=== PATIENT | male | born 1955 | race Caucasian/White ===

== ENCOUNTER 2020-06-21 19:18 | Observation (INO) | payer MEDICAID, SELFPAY ==
[2020-06-21] VITALS (10 sets, daily range): BP systolic 125–157; BP diastolic 54–77; PULSE 52–74; RESP 16–22; TEMP 36.4–36.9; O2SAT 94–98; BMI 42.3
--- NOTE | 2020-06-21 19:20 | W.ED.ABDPA2 ---
HPI - Abdominal Pain General: Chief Complaint: Abdominal Pain Stated Complaint: flank pain Time Seen by Provider: 06/21/20 19:18 Source: patient Mode of arrival: ambulatory Limitations: no limitations History of Present Illness: HPI narrative: Nazario is a nice 64-year-old male comes in complaining of left upper quadrant abdominal pain. He states at times the pain will go across his upper abdomen as well. There is associated nausea and has vomited once but did not get any relief with this. He states when he lays in certain positions the pain will go away briefly but then returns. He denies any fevers or chills. He has had shortness of breath he thinks primarily from the pain taking his breath away. He is not had any cough, loss of sense of taste or loss of sense of smell. He does feel somewhat constipated like he needs to go but he denies any recent blood in his stools or black tarry stools. Patient denies any chest pain. Patient states the pain started last night and is gotten progressively worse. It was gradual in onset from the beginning and is just continued to worsen. Associated Symptoms: Reports nausea and vomiting; Denies chills, coffee ground emesis, constipation, GI cramping, diarrhea, dysuria, fever(s), heartburn, hematochezia, hematuria, hematemesis, melena and syncope Review of Systems Const: Denies: fever(s), chills, body aches, fatigue, malaise or diaphoresis Eyes: Denies: change in vision, blurry vision, photophobia, eye discomfort, eye discharge or eye redness ENMT: Denies: throat pain, odynophagia, hoarseness, swelling of lips/tongue, ear or mastoid pain, ear discharge, change in hearing or nasal discharge Card: Denies: chest pain, palpitations, irregular heart rhythm, edema, lightheadedness, syncope, pre-syncope, dyspnea on exertion or orthopnea Resp: Reports: dyspnea; Denies: productive cough, non-productive cough, wheezing, hemoptysis or chest congestion GI: Reports: abdominal pain, nausea and vomiting; Denies: hematemesis, coffee ground emesis, heartburn, diarrhea, constipation, GI cramping, hematochezia or melena : Denies: flank pain, dysuria, urinary frequency, urinary urgency or hematuria Musc: Denies: neck pain, back pain, extremity pain, extremity swelling, joint pain, joint swelling, joint redness, joint warmth or joint stiffness Skin/Breast: Denies: rash, pruritus, erythema or skin tenderness Neuro: Denies: headache(s), numbness in extremities, weakness in extremities, sensory changes, lack of coordination, difficulty walking, dizziness, vertigo, confusion, Slurred speech present or seizure-like activity Ayaz/Lymph: Denies: easy bruising, easy bleeding, petechiae, purpura or enlarged lymph nodes All/Imm: Denies: urticaria, throat swelling, tongue swelling, facial swelling or acute wheezing PFSH ED PFSH: Medical History 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 CAD (coronary artery disease) Diastolic heart failure HTN (hypertension) Hyperlipidemia Surgical History S/P CABG (coronary artery bypass graft) Family History Mother Diabetes Heart disease Father Diabetes Heart disease Social History Smoking and tobacco status: former smoker Physical Exam Const: COMMON NORMALS: no acute distress, patient oriented x3, no limitations, healthy appearing and well nourished GENERAL APPEARANCE: cooperative, well kempt and well developed HENMT: COMMON NORMALS: normocephalic, atraumatic, external ears normal, EAC's normal and Normal external nose present HEAD & SCALP: normal to inspection, normocephalic and atraumatic FACE & SINUS: normal facial exam and face symmetric NOSE: Normal external nose present and Normal nares present EXTERNAL EAR: Yes external ears normal EXTERNAL AUDITORY CANAL: EAC's normal MOUTH: Normal oral and palatal mucosa present, lip normal and tongue normal Eye: COMMON NORMALS: Equal, round and reactive pupils present and conjunctivae normal GENERAL EYE: appearance normal, both eyes and all related structures ALIGNMENT: Yes alignment normal PERIORBITAL: periorbital findings normal EYELID: eyelids normal CONJUNCTIVA: Yes conjunctivae normal SCLERA: sclerae normal PUPIL: Yes Equal, round and reactive pupils present Neck/C-Spine: COMMON NORMALS: full ROM, no lymphadenopathy, supple, no meningeal signs and no JVD GENERAL: Yes normal visual inspection and Yes trachea midline Chest: COMMONS NORMALS: normal inspection of the chest and normal palpation of entire chest wall Resp: COMMON NORMALS: normal respiratory effort, No retractions, No use of accessory muscles and clear to auscultation bilaterally EFFORT & INSPECTION: Yes able to speak in complete sentences and Yes symmetric chest movement AUSCULTATION: clear to auscultation bilaterally, no crackles, no rales, no rhonchi and no wheezes Cardio: COMMON NORMALS: no JVD, regular rate, regular rhythm, S1 normal heart sound present and S2 normal heart sound present RATE: regular rate RHYTHM: regular rhythm HEART SOUNDS: S1 normal heart sound present, S2 normal heart sound present, no click, no gallops, no murmurs, no rubs and abnormal split S2 GI: COMMON NORMALS: Soft to palpation and No hepatosplenomegaly present PALPATION: Yes Soft to palpation, Yes Tenderness to palpation present (GI) Details: LUQ, No Guarding due to palpation present (GI), No Rigid due to palpation, Yes No hepatosplenomegaly present, No Hernia present, No Palpable mass present and No Pulsatile mass present : COMMON NORMALS: Yes no CVA tenderness BLADDER/KIDNEY EXAM: Yes no CVA tenderness Back/Pelvis: COMMON NORMALS: no CVA tenderness, thoracic and lumbar spine normal to inspection, no thoracic nor lumbar tenderness and thoraco-lumbar ROM normal Extremity: COMMON NORMALS: normal to inspection, full ROM, capillary refill normal, no joint enlargement, no clubbing, cyanosis or edema and no calf tenderness Neuro: COMMON NORMALS: patient oriented x3, CN's II-XII intact bilaterally, moves all extremities, no focal motor deficits and no sensory deficits noted MENINGEAL SIGNS: Yes no meningeal signs SPEECH: speech normal Psych: COMMON NORMALS: mental status grossly normal, Normal thought process present, cooperative, normal affect, speech normal and activity/motor behavior normal APPEARANCE: Yes well kempt SPEECH: Yes normal speech THOUGHT PROCESS: Normal thought process present Skin: COMMON NORMALS: no rashes or lesions noted, turgor normal, no jaundice, no petechiae and no mottling GENERAL SKIN EXAM: no rashes or lesions noted and turgor normal Course Vital Signs: Vital signs: Vital Signs Temperature 97.5 F L 06/21/20 19:23 Pulse Rate 56 L 06/21/20 20:34 Respiratory Rate 18 06/21/20 21:29 Blood Pressure 157/69 06/21/20 20:34 Pulse Oximetry 95 06/21/20 20:34 MDM - Abdominal Pain Lab Data: Attestation: I reviewed the patient's lab results. Labs: Lab Results 06/21/20 06/21/20 06/21/20 Range/Units 19:21 19:21 19:21 WBC 9.4 (4.0-10.0) 10^3/ uL RBC 4.03 L (4.1-5.3) 10^6/u L Hgb 13.9 (11.7-16.6) g/dL Hct 43.1 (42.0-52.0) % MCV 106.9 H (80-94) fL MCH 34.5 H (28.0-34.0) pg MCHC 32.3 (30.0-36.0) g/dL RDW 13.6 (12.1-15.1) % Plt Count 216 (130-400) 10^3/c mm MPV 10.0 (7.4-10.4) fL Neut % (Auto) 65.4 % Lymph % (Auto) 24.3 % Mcpherson % (Auto) 8.2 % Eos % (Auto) 1.2 % Baso % (Auto) 0.4 % Neut # (Auto) 6.18 (1.8-7.7) 10^3/u L Lymph # (Auto) 2.3 (0.8-4.8) 10^3/u L Mcpherson # (Auto) 0.8 (0.2-0.9) 10^3/u L Eos # (Auto) 0.1 (0.0-0.8) 10^3/u L Baso # (Auto) 0.0 (0.0-0.1) 10^3/u L Nucleated RBC % (a uto) 0 % Nucleated RBCs # 0.0 /100WBC Sodium 134 L (136-145) mmol/L Potassium 3.9 (3.5-5.1) mmol/L Chloride 101 (98-107) mmol/L Carbon Dioxide 19 L (22-29) mmol/L Anion Gap 17.9 (5-19) BUN 13 (8-23) mg/dL Creatinine 1.2 (0.7-1.2) mg/dL GFR Calculation 61.3 L (90-130) mL/min Glucose 145 H (65-115) mg/dL Calculated Osmolal ity 277 L (285-295) mOsm/k g Lactic Acid (0.5-2.2) mmol/L Calcium 9.2 (8.5-10.5) mg/dL Total Bilirubin 0.4 (0.15-1.2) mg/dL AST 38 (0-40) U/L ALT 34 (0-41) U/L Alkaline Phosphata se 59 (40-130) IU/L Troponin T Baselin e 20 H (0-15) ng/L Total Protein 8.0 (6.6-8.7) g/dL Albumin 4.3 (3.5-5.2) g/dL Globulin 3.7 (1.3-4.6) g/dL Lipase 71 H (13-60) U/L Urine Color (Yellow) Urine Appearance (CLEAR) Urine pH (5-7) Ur Specific Gravit y (1.005-1.030) Urine Protein (Negative) Urine Glucose (UA) (Normal) Urine Ketones (Negative) Urine Blood (Negative) Urine Nitrate (Negative) Urine Bilirubin (NEGATIVE) Urine Urobilinogen (Negative) mg/dL Ur Leukocyte Geovanna ase (Negative) Urine RBC (0-2) /hpf Urine WBC (0-5) /hpf Ur Squamous Epith Cells (0-5) Amorphous Sediment Urine Bacteria (NONE) 06/21/20 06/21/20 Range/Units 19:35 19:50 WBC (4.0-10.0) 10^3/ uL RBC (4.1-5.3) 10^6/u L Hgb (11.7-16.6) g/dL Hct (42.0-52.0) % MCV (80-94) fL MCH (28.0-34.0) pg MCHC (30.0-36.0) g/dL RDW (12.1-15.1) % Plt Count (130-400) 10^3/c mm MPV (7.4-10.4) fL Neut % (Auto) % Lymph % (Auto) % Mcpherson % (Auto) % Eos % (Auto) % Baso % (Auto) % Neut # (Auto) (1.8-7.7) 10^3/u L Lymph # (Auto) (0.8-4.8) 10^3/u L Mcpherson # (Auto) (0.2-0.9) 10^3/u L Eos # (Auto) (0.0-0.8) 10^3/u L Baso # (Auto) (0.0-0.1) 10^3/u L Nucleated RBC % (a uto) % Nucleated RBCs # /100WBC Sodium (136-145) mmol/L Potassium (3.5-5.1) mmol/L Chloride (98-107) mmol/L Carbon Dioxide (22-29) mmol/L Anion Gap (5-19) BUN (8-23) mg/dL Creatinine (0.7-1.2) mg/dL GFR Calculation (90-130) mL/min Glucose (65-115) mg/dL Calculated Osmolal ity (285-295) mOsm/k g Lactic Acid 2.3 H (0.5-2.2) mmol/L Calcium (8.5-10.5) mg/dL Total Bilirubin (0.15-1.2) mg/dL AST (0-40) U/L ALT (0-41) U/L Alkaline Phosphata se (40-130) IU/L Troponin T Baselin e (0-15) ng/L Total Protein (6.6-8.7) g/dL Albumin (3.5-5.2) g/dL Globulin (1.3-4.6) g/dL Lipase (13-60) U/L Urine Color Yellow (Yellow) Urine Appearance Clear (CLEAR) Urine pH 6 (5-7) Ur Specific Gravit y 1.015 (1.005-1.030) Urine Protein Neg (Negative) Urine Glucose (UA) Norm (Normal) Urine Ketones Negative (Negative) Urine Blood Neg (Negative) Urine Nitrate Negative (Negative) Urine Bilirubin Neg (NEGATIVE) Urine Urobilinogen Norm (Negative) mg/dL Ur Leukocyte Geovanna ase Negative (Negative) Urine RBC None (0-2) /hpf Urine WBC None (0-5) /hpf Ur Squamous Epith Cells 5-10 H (0-5) Amorphous Sediment Not Reportable Urine Bacteria Trace (NONE) Imaging Data ^: CT Abd/Pel: Radiologist's impression: [address] [address] [address] Scan Report Signed Patient: Laura Iqbal Unit #: [id number] : 01/23/1991 Age/Sex: 29 / F ADM Date: 06/21/20 Loc: ER Room/Bed: Attending Dr: Ordering Provider/Ordering MD: Jill Cerrato DO Date of Service: 06/21/20 Procedure(s): CT angio chest PE protcl [id number] Accession Number(s): [id number] Report Number: [id number] PROCEDURE INFORMATION: Exam: CT Angiography Chest With Contrast Exam date and time: 06/21/2020 8:29 PM Age: 29 years old Clinical indication: Chest pain; Additional info: Chest pain, positive d-dimer TECHNIQUE: Imaging protocol: Computed tomographic angiography of the chest with intravenous contrast. 3D rendering (Not supervised by radiologist): MIP and/or 3D reconstructed images were created by the technologist. Radiation optimization: All CT scans at this facility use at least one of these dose optimization techniques: automated exposure control; mA and/or kV adjustment per patient size (includes targeted exams where dose is matched to clinical indication); or iterative reconstruction. Contrast material: VISI 320; Contrast volume: 67 ml; Contrast route: INTRAVENOUS (IV); COMPARISON: CR XR chest 2V* [id number] 06/21/2020 6:03 PM RADIATION DOSE METRICS: Total DLP (mGy-cm): 588.13 FINDINGS: Pulmonary arteries: Normal. No pulmonary emboli. Aorta: Unremarkable. No aortic aneurysm. No aortic dissection. Lungs: Unremarkable. No consolidation. No masses. Pleural space: Unremarkable. No pneumothorax. No pleural effusion. Heart: Unremarkable. No cardiomegaly. No pericardial effusion. Lymph nodes: Unremarkable. No enlarged lymph nodes. Bones/joints: Unremarkable. No acute fracture. Soft tissues: Unremarkable. CT/CT angio chest PE protcl [id number] IMPRESSION: Negative for pulmonary embolus or airspace infiltrate. Radiation Dose CTDIVOL = (mGy): DLP = 588.13 (mGy-cm) Dictated By: Yoshi Christian MD Signed By: Yoshi Christian MD Signed Date/Time: 06/21/202114 DD/ 13 US: My impression: Ultrasound abdomen complete, tech interpretation -increased gas within the bowel itself. Gallbladder normal except for gallstone present. No gallbladder wall thickening or pericholecystic fluid. All other findings unremarkable. Please see formal report. EKG Data ^: EKG 1: Attestation: I personally reviewed and interpreted this EKG as follows: EKG interpretation date: 06/21/20 EKG interpretation time: 19:34 Interpretation: Normal sinus rhythm at 63 beats a minute, nonspecific ST and T wave changes. No blocks, normal intervals. Similar to previous. EKG 2: Attestation: I personally reviewed and interpreted this EKG as follows: EKG interpretation date: 06/21/20 EKG interpretation time: 21:36 Interpretation: Sinus bradycardia 51 beats a minute, no acute ST or T wave changes. Prolonged QT. Discharge Plan Discharge Prescriptions: No Action metoprolol tartrate 50 mg tablet 50 mg PO BID RF: 0 lisinopril 5 mg tablet 5 mg PO DAILY RF: 0 aspirin [Adult Low Dose Aspirin] 81 mg tablet,delayed release (DR/EC) 81 mg PO DAILY RF: 0 Novolog U-100 Insulin aspart 100 unit/mL solution 5 unit SUBCUT DIRECTED RF: 0 Lantus U-100 Insulin 100 unit/mL solution 30 unit SUBCUT DIRECTED RF: 0 ranolazine [Ranexa] 500 mg tablet extended release 12 hr 1,000 mg PO BID RF: 0 isosorbide mononitrate 30 mg tablet extended release 24 hr 120 mg PO DIRECTED Qty: 120 RF: 5 bumetanide 1 mg tablet 1 mg PO BID Qty: 90 RF: 3 simvastatin 40 mg tablet 40 mg PO .HS Qty: 90 RF: 3 Coding Level of Care Code ED 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
--- NOTE | 2020-06-21 19:27 | CTR_ITS ---
PROCEDURE INFORMATION: Exam: CT Abdomen And Pelvis With Contrast Exam date and time: 06/21/2020 8:00 PM Age: 64 years old Clinical indication: Nausea and other: Belching; Abdominal pain; Other: Epigastric; Prior surgery; Surgery type: Hernia, hip, cabg TECHNIQUE: Imaging protocol: Computed tomography of the abdomen and pelvis with intravenous contrast. Radiation optimization: All CT scans at this facility use at least one of these dose optimization techniques: automated exposure control; mA and/or kV adjustment per patient size (includes targeted exams where dose is matched to clinical indication); or iterative reconstruction. Contrast material: OMNI 300; Contrast volume: 95 ml; Contrast route: INTRAVENOUS (IV); COMPARISON: US Abdomen* [id number] 10/09/2019 8:08 AM RADIATION DOSE METRICS: Total DLP (mGy-cm): 2005.72 FINDINGS: There is atelectasis within the lung bases. There are degenerative changes of the spine. There are degenerative changes of the sacroiliac joints. There are postop changes of the right hemipelvis. There is fatty infiltration of the liver. There is no liver mass. There is no intrahepatic biliary dilatation. A gallstone is seen within the gallbladder. The pancreas is unremarkable. The spleen is unremarkable. There is no adrenal mass. There is no hydronephrosis. There are no renal calculi. There is no perinephric stranding. There is no renal mass. The aorta is normal in caliber. The IVC is normal in caliber. There is no retroperitoneal adenopathy. There is no mesenteric adenopathy. An IVC filter is noted. There is a small hiatal hernia. There is no gastric wall thickening. The small bowel loops in the upper abdomen are nondistended with no bowel wall thickening. The colonic structures within the upper abdomen are normal in caliber with no bowel wall thickening. There is a fat containing umbilical hernia. A normal appendix is seen in the right lower abdomen. Within the pelvis: The bladder is unremarkable. The prostate gland and seminal vesicles are normal. There is no free fluid within the pelvis. There is no inguinal adenopathy. There is a fat containing right inguinal hernia. There is no pelvic adenopathy. The bowel loops within the pelvis are unremarkable. CT/CT abdomen pelvis w con* [id number] IMPRESSION: 1. Fatty infiltration of the liver. 2. Gallstone within the gallbladder. 3. No evidence for bowel obstruction or bowel wall thickening. Radiation Dose CTDIVOL = (mGy): DLP = 2006.72 (mGy-cm)
--- NOTE | 2020-06-21 19:27 | ECG_ITS ---
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 Measurements Intervals [place] Rate: 63 P: 24 CT: 161 QRS: -5 QRSD: 92 T: 91 QT: 402 QTc: 414 Interpretive Statements SINUS RHYTHM NONSPECIFIC ST & T-WAVE ABNORMALITY Compared to ECG 10/09/2019 12:19:32 Sinus bradycardia no longer present T-wave abnormality still present Electronically Signed On 06-23-2020 12:47:48 CDT by Kushal Blankenship M.D. [id number] f
[2020-06-21 19:30] LABS: Basophils % 0.4 %; Eosinophils # 0.1 10^3/uL (0.0-0.8); Eosinophils % 1.2 %; Hematocrit 43.1 % (42.0-52.0); Hemoglobin 13.9 g/dL (11.7-16.6); Lymphocytes # 2.3 10^3/uL (0.8-4.8); Lymphocytes % 24.3 %; Mean Corpuscular HGB Conc 32.3 g/dL (30.0-36.0); Mean Corpuscular Hemoglobin 34.5 pg (28.0-34.0); Mean Corpuscular Volume 106.9 fL (80-94); Monocytes # 0.8 10^3/uL (0.2-0.9); Monocytes % 8.2 %; Neutrophils # 6.18 10^3/uL (1.8-7.7); Neutrophils % 65.4 %; Nucleated Red Blood Cells % 0 %; Platelet Count 216 10^3/cmm (130-400); Red Blood Count 4.03 10^6/uL (4.1-5.3); Red Cell Distribution Width 13.6 % (12.1-15.1); White Blood Count 9.4 10^3/uL (4.0-10.0)
[2020-06-21] MEDS: ondansetron 2 mg/ML SDV 2 mL 4 MG IVP (19:37)
[2020-06-21] MEDS: morphine 4 mg/mL SDV 1 mL IVP (19:38)
[2020-06-21] MEDS: sodium chloride 0.9% 1,000 ML 100 ML IV (19:42)
[2020-06-21 19:46] LABS: Alanine Aminotransferase 34 U/L (0-41); Albumin Level 4.3 g/dL (3.5-5.2); Alkaline Phosphatase 59 IU/L (40-130); Aspartate Amino Transferase 38 U/L (0-40); Blood Urea Nitrogen 13 mg/dL (8-23); Calcium 9.2 mg/dL (8.5-10.5); Carbon Dioxide 19 mmol/L (22-29); Chloride 101 mmol/L (98-107); Globulin 3.7 g/dL (1.3-4.6); Glomerular Filtration Rate 61.3 mL/min (90-130); Glucose 145 mg/dL (65-115); Lipase 71 U/L (13-60); Osmolality Calculated 277 mOsm/kg (285-295); Sodium 134 mmol/L (136-145); Total Bilirubin 0.4 mg/dL (0.15-1.2)
[2020-06-21 19:48] LABS: Anion Gap 17.9 (5-19); Potassium 3.9 mmol/L (3.5-5.1)
[2020-06-21 19:57] LABS: Lactic Sepsis W/Reflex 2.3 mmol/L (0.5-2.2)
[2020-06-21 19:58] LABS: Troponin(5th) Baseline 20 ng/L (0-15)
--- NOTE | 2020-06-21 19:58 | PC.NURSE ---
EKG done at 1930 and shown to ER doctor
[2020-06-21] MEDS: iohexol 300 mg/mL 100 mL Btl IV (20:14)
[2020-06-21 20:37] LABS: Bilirubin Urine Neg (NEGATIVE); Blood Urine Neg (Negative); Glucose Urine UA Norm (Normal); Ketones Urine Negative (Negative); Leukocyte Esterase Urine Negative (Negative); Nitrate Urine Negative (Negative); Protein Urine Neg (Negative); Specific Gravity, Urine 1.015 (1.005-1.030); Urine Appearance Clear (CLEAR); Urine Color Yellow (Yellow); Urobilinogen Urine Norm (Negative); pH Urine 6 (5-7)
[2020-06-21 20:38] LABS: Add Urine Culture? No; Bacteria Urine TRACE
[2020-06-21] MEDS: HYDROmorphone 1 mg/mL INJ 1 mL IVP ×2 (20:47→22:14)
[2020-06-21] MEDS: sodium chloride 0.9% 1,000 ML 999 ML IV ×2 (21:19→23:18)
[2020-06-21 21:24] LABS: Reflex Lactate Order REFLEX LACTIC ORDERD
--- NOTE | 2020-06-21 21:27 | ECG_ITS ---
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 Measurements Intervals [place] Rate: 51 P: 23 [place]: 175 QRS: 0 QRSD: 98 T: 57 QT: 486 QTc: 449 Interpretive Statements SINUS BRADYCARDIA NONSPECIFIC T-WAVE ABNORMALITY PROLONGED QT INTERVAL Compared to ECG 10/09/2019 12:19:32 Prolonged QT interval now present T-wave abnormality still present Electronically Signed On 06-21-2020 23:36:59 CDT by Charisma Kelly M.D. [id number]
[2020-06-21] MEDS: HYDROmorphone 1 mg/mL INJ 1 mL 0.5 MG IVP (21:29)
--- NOTE | 2020-06-21 21:37 | PC.NURSE ---
EKG done at 2135 and shown to ER doctor
[2020-06-21 21:57] LABS: Troponin 5 2HR 22.28 ng/L (0-15); Troponin 5 2HR Delta 2.28 ABS# (0-10)
[2020-06-21 22:02] LABS: Lactic Acid level (Lactate) 1.5 mmol/L (0.5-2.2)
--- NOTE | 2020-06-21 22:21 | P.HP_ITS ---
Providers/Chief Complaint Primary Care Provider: Raymundo Clayton MD Chief Complaint: flank pain History of Present Illness Nazario Wood is a 64 year old male who carries history of established coronary disease, patent grafts with multivessel disease, type 2 diabetes, diastolic congestive heart failure, hypertension, came in today for worsening left upper quadrant pain. He underwent stress test 10/20, which showed mild to moderate ischemia in anterolateral territory consistent LAD distribution, his antianginal medications were uptitrated, his anatomy shows 80% left main chronically occluded mid LAD, chronically occluded circumflex along with chronically occluded mid RCA and patent EDWARDS to LAD with SVG to obtuse marginal and RCA as per angiogram 2017. Patient is stating that he started experiencing left upper quadrant pain which he is describing as burning sensation. His symptoms started yesterday after dinner, in the morning he had 2 slices of bread with butter, when he returned from his work he started experiencing worsening of left upper quadrant pain, he experienced multiple episodes of dry heaves, with one episode of small quantity vomiting, he did not experience any fever, dysuria, diarrhea or constipation. He has been experiencing belching/burping a lot. Patient is not endorsing worsening abdominal pain with intake of fatty food. He does not take NSAIDs on regular basis, no previous history of gastric ulcer. He is stating that he would not call it chest pain, this pain is different when he had CT in the past, he is denying substernal chest pain, orthopnea, PND, but endorsing pleuritic pain on his left side which gets worse on deep breathing. 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 His left upper quadrant pain radiates towards right upper quadrant in a band pattern below his rib cage, he feels bloated, his last bowel movement was yesterday wh ich was regular. Of note, Mr. Wood just finished course of amoxicillin for sinusitis 3 to 4 days ago, he has been using pseudoephedrine as well. Diagnosis in the ER revealed sinus bradycardia, normal blood pressure, lactic acidemia which improved with fluid resuscitation, his left upper quadrant pain improved with opioids, I have requested GI cocktail, he had received multiple doses of NSAIDs, patient is endorsing that he feels better when he is in left lateral position, no leukocytosis, CT abdomen did not show any mesenteric ischemia or splenic infarct, it is positive for hiatal hernia, cholelithiasis, inguinal hernia. Dr. Jain has been notified as well by the ER physician At the time of my evaluation patient received GI cocktail, he was burping a lot during my interview. He was endorsing feeling better on laying on his left lateral side. Review of Systems Const: Reports: fatigue; Denies: fever(s), chills or body aches Eyes: Denies: change in vision ENMT: Denies: throat pain Card: Reports: swelling of feet/ankles; Denies: chest pain, syncope, pre-syncope, dyspnea on exertion or orthopnea Resp: Denies: dyspnea GI: Reports: abdominal pain, nausea, vomiting, heartburn, bloating and GI cramping; Denies: diarrhea or constipation : Denies: flank pain or difficulty urinating Musc: Denies: neck pain Skin/Breast: Denies: rash Neuro: Denies: headache(s) Psych: Denies: anxiety Endo: Denies: polyuria Ayaz/Lymph: Denies: easy bruising All/Imm: Denies: urticaria Medications/Allergies Home Medications Medication Instructions Recorded Confirmed Last Taken Type aspirin 81 mg tablet,delayed 81 mg PO DAILY tab 11/21/19 02/27/20 Unknown History release insulin aspart U-100 100 unit/mL 5 unit SUBCUT DIRECTED ml 11/21/19 02/27/20 Unknown History subcutaneous solution lisinopril 5 mg tablet 5 mg PO DAILY tab 11/21/19 02/27/20 Unknown History metoprolol tartrate 50 mg tablet 50 mg PO BID 11/21/19 02/27/20 Unknown History insulin glargine 100 unit/mL 30 unit SUBCUT DIRECTED ml 11/22/19 02/27/20 Unknown History subcutaneous solution ranolazine 500 mg tablet,extended 1,000 mg PO BID tab 11/22/19 02/27/20 Unknown History release,12 hr bumetanide 1 mg tablet 1 mg PO BID #90 tab 05/31/20 Unknown Rx isosorbide mononitrate 30 mg 120 mg PO DIRECTED #120 tab 05/31/20 Unknown Rx tablet,extended release 24 hr simvastatin 40 mg tablet 40 mg PO .HS #90 tab 05/31/20 Unknown Rx Allergies Allergy/AdvReac Type Severity Reaction Status Date / Time No Known Allergies Allergy Unverified 11/21/19 10:08 PFSH Acute PFSH: Medical History (Updated 06/21/20 @ 23:30 by Kushal Jane MD) 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 CAD (coronary artery disease) Diabetes mellitus Diastolic heart failure HTN (hypertension) Hyperlipidemia Presence of IVC filter Surgical History (Updated 06/21/20 @ 23:19 by Kushal Jane MD) S/P brain surgery S/P CABG (coronary artery bypass graft) S/P carpal tunnel release S/P hip replacement Family History Mother Diabetes Heart disease Father Diabetes Heart disease Social History (Updated 06/21/20 @ 23:28 by Kushal Jane MD) Smoking and tobacco status: former smoker Alcohol intake: current Alcohol type: beer Alcohol use comment: 2 beers every day Substance/Drug Use: never Household members: spouse Housing: House Marital status: Vitals/I&O/Wt Last Vital Signs Temp 97.5 F L 06/21/20 19:23 Pulse 52 L 06/21/20 21:43 Resp 18 06/21/20 22:14 BP 146/64 06/21/20 21:43 Pulse Ox 98 06/21/20 21:43 Weight last 48 hrs Weight 122.47 kg Physical Exam Narrative: EXAM NARRATIVE: Head to toe examination Patient is laying in supine position, feels better on left lateral position, which improves his pleuritic left-sided pain Saturating well on 2 L nasal cannula Sinus bradycardia heart rate in 50s prolonged QTc interval on EKG EOMI, PERRLA Dry mucosal membrane Lower extremity trace edema bilaterally S1, S2 no tachycardia or heart failure active signs Bilateral breath sounds without adventitious sounds Abdomen distended, Rodrigues's sign positive, no active rigidity or guarding, right inguinal hernia reducible without any pain on palpation, bowel sounds hyperactive, umbilical hernia, Appropriate mood and affect Neurologically nonfocal deficit Data : 06/21/20 19:21 06/21/20 19:21 A&P Assessment and plan (1) Abdominal pain: Status: Acute (2) Lactic acidemia: Status: Acute (3) Hiatal hernia: Status: Acute (4) Inguinal hernia: Status: Acute (5) Diastolic heart failure: Status: Acute (6) CAD (coronary artery disease): Status: Acute (7) Morbid obesity due to excess calories: Status: Acute Additional A&P Information Left upper quadrant pain Patient is denying orthopnea, PND, angina-like symptoms, EKG showing sinus bradycardia without ischemic or infarctive changes, troponin without significant delta No splenic infarct on CT abdomen No signs of mesenteric ischemia Would rule out PE with d-dimer for pleuritic nature of left-sided pain Mr. Wood suffered from sinusitis and received antibiotics, he is status post course of amoxicillin and pseudoephedrine, I do suspect upper respite tract infection sequelae pleurisy to be the cause of his symptoms, I would use NSAIDs to reduce inflammation, GI cocktail Cholelithiasis chronic, on physical exam he has mild tenderness on deep palpation of right upper quadrant, positive Rodrigues sign, will request abdominal ultrasound, no active signs of sepsis Fatty infiltration of liver, patient is diabetic and drinks 2 beers every day, incidental finding of hiatal hernia, fat containing right inguinal hernia without any signs of strangulation or incarceration clinically I will keep him n.p.o. overnight, Treat with NSAIDs for pleuritic nature of left upper quadrant pain Dr. Jain has been consulted by the ER physician Chronic sinus bradycardia Metoprolol tartrate 50 mg twice daily in the past has been discontinued by Dr. Prince No syncopal or presyncopal events, hemodynamically stable Prolonged QTc interval, will be judicious in use of antiemetics which can prolong QTC as well, check mag level Because of QTC prolongation is bradycardia Lactic acidemia secondary to mild dehydration No active signs of sepsis, improved with fluid resuscitation Diastolic congestive heart failure: Well compensated, Currently patient is n.p.o., resume medications on discharge Possible obstructive sleep apnea: is endorsing loud snoring at night, currently patient is using Bumex 1 mg twice a day, I would recommend outpatient sleep study to avoid decompensation of diastolic congestive heart failure Patient is full code DVT prophylaxis Lovenox N.p.o. Attestations Medical Necessity Statement*: Anticipating discharge in less than 48 hours continued overnight monitoring for pleuritic left upper quadrant pain, lactic acidemia has improved, Time Spent in Patient Care: (>than 50% of time spent in counselling and/or direct pt care on unit) . 60mins Coding Level of Care Code Acute Surveillance Dual Rate Officer for Chg Fwd Diagnoses Abdominal pain R10.9 Lactic acidemia E87.2 Hiatal hernia K44.9 Inguinal hernia K40.90 Diastolic heart failure I50.30 CAD (coronary artery disease) I25.10 Morbid obesity due to excess calories E66.01
[2020-06-21] MEDS: lidocaine 2% viscous 15 ML, aluminum-mag hydrox-simethicon 30 ML, sucralfate oral liq 1 GM PO (23:16)
[2020-06-21 23:30] LABS: D Dimer 0.62 ug/mIFEU (0-0.59)
[2020-06-22] MEDS: ketorolac 30 mg/mL INJ 15 MG IVP ×3 (00:12→16:33)
[2020-06-22] MEDS: dextrose 5%-sod chloride 0.45% 1,000 ML 100 ML IV ×2 (00:13→13:11)
[2020-06-22] MEDS: enoxaparin 40 mg/0.4 mL Syringe SUBCUT (00:13)
--- NOTE | 2020-06-22 04:06 | CT_ITS ---
WS: [id number] CT CHEST ANGIOGRAPHY WITH REFORMATS HISTORY: Elevated d-dimer. TECHNIQUE: Contiguous axial images are obtained through the chest during arterial injection of intrav enous contrast. Images are reconstructed to evaluate the pulmonary arteries. MIP imaging also reviewe d. All CT scans at [facility] use at least one of these dose optimization techniques: aut omated exposure control; mA and/or kV adjustment per patient size (includes targeted exams where dose is matched to clinical indication); or iterative reconstruction. CONTRAST: Omnipaque 350; 95 mL IV. DLP: 575.3 mGy.cm COMPARISON: 06/28/2016 Adequate opacification of the pulmonary arteries. No filling defects are identified. Pulmonary artery size is normal. Normal size aorta with mild atherosclerosis. Prior CABG. Mild enlargement of the LEF T heart. No pericardial effusion. No pleural effusion. There are small subcentimeter mediastinal and hilar lymph nodes. No adenopathy. Lungs are hyperexpanded with very mild dependent changes at the lung bases. No mass or pulmonary nodu le. Diffuse hepatic steatosis. Cholelithiasis without evidence for acute cholecystitis. No adrenal mass. Mild thoracic spondylosis. CT/CT angio chest PE protcl [id number] IMPRESSION: 1. No pulmonary embolism. 2. Chronic emphysema with no pneumonia. 3. Mild atherosclerosis aorta. 4. Cholelithiasis without acute cholecystitis. 5. Hepatic steatosis.
[2020-06-22 04:20] VITALS: RESP 18
[2020-06-22] MEDS: HYDROmorphone 1 mg/mL INJ 1 mL 2 MG IVP (04:20)
[2020-06-22 04:21] VITALS: BP 143/75; PULSE 66; RESP 24; TEMP 36.6; O2SAT 94
[2020-06-22 05:46] LABS: Basophils % 0.5 %; Eosinophils # 0.1 10^3/uL (0.0-0.8); Eosinophils % 1.7 %; Hematocrit 37.6 % (42.0-52.0); Hemoglobin 12.4 g/dL (11.7-16.6); Lymphocytes % 33.7 %; Mean Corpuscular Hemoglobin 35.7 pg (28.0-34.0); Mean Corpuscular Volume 108.4 fL (80-94); Mean Platelet Volume 10.1 fL (7.4-10.4); Monocytes # 0.5 10^3/uL (0.2-0.9); Monocytes % 7.8 %; Neutrophils # 3.36 10^3/uL (1.8-7.7); Neutrophils % 55.8 %; Nucleated Red Blood Cells % 0 %; Platelet Count 160 10^3/cmm (130-400); Red Blood Count 3.47 10^6/uL (4.1-5.3); Red Cell Distribution Width 13.9 % (12.1-15.1)
--- NOTE | 2020-06-22 05:59 | P.CONIM_ITS ---
Providers/Reason For Consult Consulting Physican/Specialty*: Evan Jain MD Reason for Consult*: Abdominal pain Attending Physician: Kushal Jane MD Primary Care Provider: Raymundo Clayton MD History of Present Illness History of Present Illness Chief Complaint: My left side hurts History of present illness: Nazario Wood is a 64 year old male With multiple medical comorbidities coronary disease, patent grafts with multivessel disease, type 2 diabetes, diastolic congestive heart failure, hypertension, came in today for worsening left upper quadrant pain. He underwent stress test 10/20, which showed mild to moderate ischemia in anterolateral territory consistent LAD distribution, his antianginal medications were uptitrated, his anatomy shows 80% left main chronically occluded mid LAD, chronically occluded circumflex along with chronically occluded mid RCA and patent EDWARDS to LAD with SVG to obtuse marginal and RCA as per angiogram 2016. Patient presented to the emergency department with left-sided torso pain and blood work was not impressive except for some mild elevation of lactic acid that responded to fluid resuscitation, a CT scan of the abdomen and pelvis was done that showed: FINDINGS: There is atelectasis within the lung bases. There are degenerative changes of the spine. There are degenerative changes of the sacroiliac joints. There are postop changes of the right hemipelvis. There is fatty infiltration of the liver. There is no liver mass. There is no intrahepatic biliary dilatation. A gallstone is seen within the gallbladder. The pancreas is unremarkable. The spleen is unremarkable. There is no adrenal mass. There is no hydronephrosis. There are no renal calculi. There is no perinephric stranding. There is no renal mass. The aorta is normal in caliber. The IVC is normal in caliber. There is no retroperitoneal adenopathy. There is no mesenteric adenopathy. An IVC filter is noted. There is a small hiatal hernia. There is no gastric wall thickening. The small bowel loops in the upper abdomen are nondistended with no bowel wall thickening. The colonic structures within the upper abdomen are normal in caliber with no bowel wall thickening. There is a fat containing umbilical hernia. A normal appendix is seen in the right lower abdomen. Within the pelvis: The bladder is unremarkable. The prostate gland and seminal vesicles are normal. There is no free fluid within the pelvis. There is no inguinal adenopathy. There is a fat containing right inguinal hernia. There is no pelvic adenopathy. The bowel loops within the pelvis are unremarkable. CT/CT abdomen pelvis w con* [id number] IMPRESSION: 1. Fatty infiltration of the liver. 2. Gallstone within the gallbladder. 3. No evidence for bowel obstruction or bowel wall thickening. Patient reports that the pain started at the left sided torso yesterday afternoon not related to diet, and he denies history of fatty dyspepsia, he reports that the pain across his lower rib cage does not recall similar episodes of pain like that before, he denies history of recent trauma, required pain medication to get his pain under control and I was bedside evaluating the patient in the morning and ultrasound was being taking place that showed no evidence of cholecystitis, there is no evidence of gallbladder wall thickness or pericholecystic fluid or edema yet there is a gallbladder stone and severe steatosis of the liver per my interpretation otherwise normal findings of the ultrasound of the abdomen. General surgery was consulted for further evaluation Ultrasound report: FINDINGS: Visualized pancreas is normal in appearance. Proximal inferior vena cava and aorta are normal in caliber. Liver technique echotexture is coarsened and increased in echogenicity suggesting diffuse fatty infiltration. Liver appears slightly enlarged. No mass within the liver seen. The gallbladder is distended. Intraluminal shadowing stone demonstrated. Common bile duct diameter is estimated at 0.8 mm in maximum transverse caliber. Portal venous flow is demonstrated by color flow and spectral Doppler with flow toward the liver. The right kidney is estimated at 12.5 x 6.0 x 6.7 cm in size. Cortical thickness and echotexture are normal. The left kidney is estimated at 12.3 x 5.4 x 5.9 cm in size. Cortical thickness and echotexture are normal. The spleen is about 12.5 cm in length. Otherwise unremarkable. No free fluid is identified. US/US abdomen complete* [id number] IMPRESSION: Slight hepatomegaly with diffuse fatty infiltration in the liver. Cholelithiasis without findings of cholecystitis. Normal appearance of the spleen, pancreas and both kidneys. Review of Systems General: Reports: 10 or more systems reviewed and unremarkable except in HPI and below Meds/Allergies Home Medications and Allergies Home Medications Medication Instructions Recorded Confirmed Last Taken Type insulin aspart U-100 100 unit/mL See Rx Instructions .ROUTE 11/21/19 06/22/20 Unknown History subcutaneous solution .COMPLEX ml lisinopril 5 mg tablet 5 mg PO DAILY tab 11/21/19 06/22/20 Unknown History metoprolol tartrate 50 mg tablet 50 mg PO BID 11/21/19 06/22/20 Unknown History insulin glargine 100 unit/mL 55 unit SUBCUT BEDTIME ml 11/22/19 06/22/20 Unknown History subcutaneous solution ranolazine 500 mg tablet,extended 1,000 mg PO BID tab 11/22/19 06/22/20 Unknown History release,12 hr bumetanide 1 mg tablet 1 mg PO BID #90 tab 05/31/20 06/22/20 Unknown Rx amlodipine 2.5 mg PO DAILY 06/22/20 06/22/20 Unknown History aspirin 325 mg PO DAILY 06/22/20 06/22/20 Unknown History isosorbide mononitrate See Rx Instructions .ROUTE .COMPLEX 06/22/20 06/22/20 Unknown History montelukast 10 mg PO DAILY 06/22/20 06/22/20 Unknown History simvastatin 40 mg PO BEDTIME 06/22/20 06/22/20 Unknown History Allergies Allergy/AdvReac Type Severity Reaction Status Date / Time No Known Allergies Allergy Verified 06/22/20 14:50 Current Medications Current Medications Generic Name Dose Route Start Last Admin Trade Name Freq PRN Reason Stop Dose Admin Enoxaparin Sodium 40 mg 06/21/20 23:25 06/22/20 00:13 Lovenox SUBCUT 40 mg Q24H GARCÍA Administration Sodium Chloride 1,000 mls @ 100 mls/hr 06/21/20 19:30 06/21/20 19:42 Sodium Chloride 0.9% IV 100 mls/hr .Q10H GARCÍA Administration Dextrose/Sodium Chloride 1,000 mls @ 100 mls/hr 06/21/20 23:25 06/22/20 00:13 Dextrose 5%-Sod Chloride 0.45% IV 100 mls/hr .Q10H GARCÍA Administration Ketorolac Tromethamine 15 mg 06/21/20 23:25 06/22/20 00:12 Toradol IVP 06/23/20 23:09 15 mg Q6H PRN Administration MODERATE PAIN PFSH Acute PFSH: Medical History 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 CAD (coronary artery disease) Diabetes mellitus Diastolic heart failure HTN (hypertension) Hyperlipidemia Presence of IVC filter Surgical History S/P brain surgery S/P CABG (coronary artery bypass graft) S/P carpal tunnel release S/P hip replacement Family History Mother Diabetes Heart disease Father Diabetes Heart disease Social History Smoking and tobacco status: former smoker Alcohol intake: current Alcohol type: beer Alcohol use comment: 2 beers every day Substance/Drug Use: never Household members: spouse Housing: House Marital status: Vitals/I&O/Wt Last Vital Signs Temp 97.8 F 06/22/20 04:21 Pulse 66 06/22/20 04:21 Resp 24 H 06/22/20 04:21 BP 143/75 06/22/20 04:21 Pulse Ox 94 06/22/20 04:21 06/21/20 06/21/20 06/22/20 14:59 22:59 06:59 Intake Total 1000 / 1000 Balance 1000 / 1000 Weight last 48 hrs Weight 270 lb Physical Exam Narrative: EXAM NARRATIVE: Patient is conscious alert oriented X3 BMI 42 Head and neck examination PERRLA no masses no cervical lymphadenopathy no jaundice Cardiac examination audible S1-S2 no murmurs no gallops no arrhythmias Chest is clear bilateral,abscence of Rhonchi or wheezes,no surgical emphysema Left-sided torso pain mostly appreciated towards the left hemithorax towards the left costal margin Abdomen nontender except mildly towards the left upper quadrant nondistended soft no organomegaly guarding or rigidity/no signs of peritonitis slight tenderness in the right upper quad Morbidly obese Extremities no cyanosis no clubbing no edema A&P Assessment and plan (1) Abdominal pain: 06:00 am After history taking physical examination and reviewing the chart and images with my personal interpretation, patient did receive a lot of pain medication that may mask appropriate physical exam, I will repeat my physical examination through the day. The Symptomatology that I collected so far is not related to gallbladder disease yet, I would entertain the idea of discussing further potential surgery of gallbladder down the road giving the fact that the patient has remarkable steatosis of the liver will make his laparoscopic cholecystectomy more challenging and I would recommend highly to place the patient on liquid protein diet for 2 weeks prior to surgery to downsize the volume of the liver before surgery would to take place. Medical optimization of the cardiopulmonary status would be appropriate as well before elective surgery At this particular point I do not see a strong indication for surgical intervention after further analyzing patient's complaining more. Thank you for consulting general surgery to participate taking care Mr. Wood 13:00 Evaluation of the patient patient appears to be moderately distended and bloated and vague tenderness appreciated but no positive Rodrigues sign. We will plan to administer a bottle of mag citrate to help the patient move his bowels and see if this would help some. Assurance and education All questions have been answered and all concerns have been addressed to patient's satisfaction. Status: Acute Consult Attestations Medical Necessity Statement: Per hospitalist service Time Spent in Patient Care: (>than 50% of time spent in counselling and/or direct pt care on unit) . Coding Level of Care Code Acute Career Development Specialist for Crys Hawkins Diagnoses Abdominal pain R10.9
[2020-06-22 06:19] LABS: Alanine Aminotransferase 28 U/L (0-41); Albumin Level 3.7 g/dL (3.5-5.2); Alkaline Phosphatase 43 IU/L (40-130); Aspartate Amino Transferase 26 U/L (0-40); Blood Urea Nitrogen 14 mg/dL (8-23); Calcium 7.6 mg/dL (8.5-10.5); Carbon Dioxide 22 mmol/L (22-29); Chloride 106 mmol/L (98-107); Globulin 2.7 g/dL (1.3-4.6); Glomerular Filtration Rate 61.3 mL/min (90-130); Glucose 154 mg/dL (65-115); Osmolality Calculated 281 mOsm/kg (285-295); Sodium 136 mmol/L (136-145); Total Bilirubin 0.3 mg/dL (0.15-1.2); Total Protein 6.4 g/dL (6.6-8.7)
[2020-06-22 07:20] LABS: Glucose Point of Care 155 mg/dL (70-110)
[2020-06-22 07:43] VITALS: BP 138/65; PULSE 72; RESP 18; TEMP 36.7; O2SAT 91
[2020-06-22] MEDS: iohexol 350 mg/mL 100 mL Btl IV (07:59)
[2020-06-22 11:03] LABS: Glucose Point of Care 133 mg/dL (70-110)
[2020-06-22 11:56] VITALS: BP 132/74; PULSE 44; RESP 18; TEMP 36.4; O2SAT 95
[2020-06-22] MEDS: magnesium citrate Btl 296 mL PO (13:26)
--- NOTE | 2020-06-22 14:10 | PC.CHAP ---
Pastoral Care Encounter/Spiritual Assessment Type of Contact [x] Declined caterers helper visit [] Patient/Family/Request visit [] Outpatient visit [] Follow-up visit [] Physician referral [] Code/Alert [x] Routine visit [] Staff referral [] Actively dying [] Patient sleeping [] Family support [] [] Out of room [] Palliative care [] [] Receiving care in room [] Pre-surgical visit [] Trauma [] Long length of stay [] ICU visit [] Other: Relational/Emotional Strength [] Patient feels connected with others/family/visitors/staff [] Distress [] Loneliness/isolation [] Abandonment Spirituality of Patient [] Person of Surekha [] Attends Catholic of their Surekha [] Believes in Prayer [] Reads Bible or Taoist materials [x] There are Spiritual issues to be addressed Cloud Developer Interventions [] Prayer [x] Active listening [x] Non-anxious presence [] Spiritual/emotional support [] Crisis/trauma care [] Spiritual counseling [] Bereavement support [] Provided bereavement packet [] Provided Bible/devotional materials [] Provided toy/stuffed animal, coloring book to patient or family member [] Provided Communion [] Anointing/[place] [] Salvation [x] Completed spiritual assessment [] Other: Impact on Illness or Injury [] Angry [] Fearful [] Anxious [] Often cries [] Exhaustion [] Unable to work [] Unable to attend presybeterian [] Unable to walk/stand [] Unable to read [] Unable to drive [] Unable to eat/drink [] Unable to sleep [] Unable to be with family [] Patient intubated [] Other: Summary Patient declined prayer. Cloud Developer asked if there was anything he could do for the patient and the patient said there was not. The patient appeared to be having considerable pain in his side. Cloud Developer told the patient that if he needed anything from caterers helper services he could let his nurse know and they would contact us. Time spent with patient 5 minutes
[2020-06-22 15:55] VITALS: BP 136/71; PULSE 52; RESP 18; TEMP 36.4; O2SAT 96
--- NOTE | 2020-06-22 15:55 | P.PN_ITS ---
Subjective Subjective: Interval history: no acute overnigth events, evaluted by surgery during the day Medications: Reviewed: Yes Vitals/I&O/Wt Last Vital Signs Temp 97.6 F 06/22/20 11:56 Pulse 44 L 06/22/20 11:56 Resp 18 06/22/20 11:56 BP 132/74 06/22/20 11:56 Pulse Ox 95 06/22/20 11:56 06/22/20 06/22/20 06/22/20 06:59 14:59 22:59 Intake Total 1000 / 1000 Output Total 350 / 350 Balance 650 / 650 Weight last 48 hrs Weight 122.47 kg Physical Exam Narrative: EXAM NARRATIVE: GEN: Awake, alert and oriented, no acute distress CVS: S1S2 N RS: CTA B/L Abd: Discomfort to palpation over epigastric area STUDENT FINANCE SPECIALIST: no focal neuro deficits Data : 06/22/20 05:14 06/22/20 05:14 A&P Assessment and plan (1) Abdominal pain: Status: Acute (2) Lactic acidemia: Status: Acute (3) Hiatal hernia: Status: Acute (4) Inguinal hernia: Status: Acute (5) Diastolic heart failure: Status: Acute (6) CAD (coronary artery disease): Status: Acute (7) Morbid obesity due to excess calories: Status: Acute Additional A&P Information Left upper quadrant pain Patient is denying orthopnea, PND, angina-like symptoms, EKG showing sinus bradycardia without ischemic or infarctive changes, troponin without significant delta No splenic infarct on CT abdomen No signs of mesenteric ischemia CTA without PE Cholelithiasis chronic, seen by surgery dr. Jewell, no signs of cholecystitis per surgery, no acute interventioned planned Given mag citrate today per recommendations Chronic sinus bradycardia Metoprolol tartrate 50 mg twice daily in the past has been discontinued No syncopal or presyncopal events, hemodynamically stable Prolonged QTc interval, will be judicious in use of antiemetics which can prolong QTC as well Lactic acidemia secondary to mild dehydration No active signs of sepsis, improved with fluid resuscitation Diastolic congestive heart failure: Well compensated, Currently patient is n.p.o., resume medications on discharge Possible obstructive sleep apnea Patient is full code DVT prophylaxis Lovenox N.p.o. Attestations Medical Necessity Statement*: no significant improvement until this afternoon, needs montioring Coding Level of Care Code Acute Guide Excursion for Chg Fwd Diagnoses Abdominal pain R10.9 Lactic acidemia E87.2 Hiatal hernia K44.9 Inguinal hernia K40.90 Diastolic heart failure I50.30 CAD (coronary artery disease) I25.10 Morbid obesity due to excess calories E66.01
[2020-06-22] MEDS: ranolazine (12HR) 500 mg Tablet 1000 MG PO (18:34)
[2020-06-22 20:00] VITALS: BP 150/63; PULSE 52; RESP 18; TEMP 36.3; O2SAT 94
--- NOTE | 2020-06-22 20:45 | US_ITS ---
WS: [id number] EXAM: ULTRASOUND OF THE ABDOMEN COMPLETE DATE OF EXAMINATION: 06/21/2020, 1920 hours COMPARISON: None. HISTORY: Patient is 64 years old with abdominal pain. FINDINGS: Visualized pancreas is normal in appearance. Proximal inferior vena cava and aorta are normal in caliber. Liver technique echotexture is coarsened and increased in echogenicity suggesting diffuse fatty infil tration. Liver appears slightly enlarged. No mass within the liver seen. The gallbladder is distended. Intraluminal shadowing stone demonstrated. Common bile duct diameter is estimated at 0.8 mm in maximum transverse caliber. Portal venous flow is demonstrated by color flow and spectral Doppler with flow toward the liver. The right kidney is estimated at 12.5 x 6.0 x 6.7 cm in size. Cortical thickness and echotexture are normal. The left kidney is estimated at 12.3 x 5.4 x 5.9 cm in size. Cortical thickness and echotexture are n ormal. The spleen is about 12.5 cm in length. Otherwise unremarkable. No free fluid is identified. US/US abdomen complete* [id number] IMPRESSION: Slight hepatomegaly with diffuse fatty infiltration in the liver. Cholelithiasi s without findings of cholecystitis. Normal appearance of the spleen, pancreas and both kidneys.
[2020-06-22 21:27] LABS: Glucose Point of Care 138 mg/dL (70-110)
[2020-06-23] VITALS: BP 123/70; PULSE 57; RESP 18; TEMP 37.2; O2SAT 95
[2020-06-23] MEDS: enoxaparin 40 mg/0.4 mL Syringe SUBCUT (01:14)
[2020-06-23 04:00] VITALS: BP 138/77; PULSE 55; RESP 18; TEMP 37; O2SAT 93
--- NOTE | 2020-06-23 06:47 | PM.PN ---
Subjective Subjective: Interval history: Patient overall feels better and had a large bowel movement and has been passing gas in response to the mag citrate. Vitals/I&O/Wt Last Vital Signs Temp 98.6 F 06/23/20 04:00 Pulse 55 L 06/23/20 04:00 Resp 18 06/23/20 04:00 BP 138/77 06/23/20 04:00 Pulse Ox 93 06/23/20 04:00 06/22/20 06/22/20 06/23/20 14:59 22:59 06:59 Intake Total 1000 / 1000 840 / 1840 480 / 2320 Output Total 350 / 350 Balance 650 / 650 840 / 1490 480 / 1970 Weight last 48 hrs Weight 270 lb Physical Exam Narrative: EXAM NARRATIVE: Patient is conscious alert oriented X3 BMI 42.3 Head and neck examination PERRLA no masses no cervical lymphadenopathy no jaundice Abdomen nontender nondistended soft no organomegaly guarding or rigidity/no signs of peritonitis Morbidly obese Data : 06/22/20 05:14 06/22/20 05:14 A&P Assessment and plan (1) Abdominal pain: From surgical standpoint of view patient has demonstrated clinical improvement, advance diet as tolerated Patient can be discharged home today and follow-up with me in the office in 2 to 3 weeks to discuss further potential need for gallbladder surgery. Low-fat diet to address patient's fatty liver Weight management Assurance and education All questions have been answered and all concerns have been addressed to patient's satisfaction. Status: Acute Attestations Medical Necessity Statement*: Per hospitalist service Time Spent in Patient Care: (>than 50% of time spent in counselling and/or direct pt care on unit). Coding Level of Care Code Acute Public Information Specialist for Chg Fwd Diagnoses Abdominal pain R10.9
[2020-06-23 06:57] LABS: Glucose Point of Care 123 mg/dL (70-110)
[2020-06-23 07:28] VITALS: BP 129/69; PULSE 55; RESP 18; TEMP 36.9; O2SAT 96
[2020-06-23] MEDS: ranolazine (12HR) 500 mg Tablet 1000 MG PO (08:24)
[2020-06-23] MEDS: amlodipine 5 mg Tablet 2.5 MG PO (08:25)
[2020-06-23] MEDS: lisinopril 5 mg Tablet PO (08:25)
[2020-06-23] MEDS: montelukast sodium 10 mg Tablet PO (08:25)
[2020-06-23] MEDS: isosorbide mononitrate ER 30 mg Tablet PO (08:25)
[2020-06-23 11:42] VITALS: BP 130/70; PULSE 55; RESP 18; TEMP 36.9; O2SAT 95
[2020-06-23 11:44] LABS: Glucose Point of Care 176 mg/dL (70-110)
[2020-06-23 15:52] VITALS: BP 134/71; PULSE 51; RESP 18; TEMP 37; O2SAT 93
--- NOTE | 2020-06-23 16:40 | P.DS_ITS ---
Discharge Providers Date of Admission: 06/21/20 22:27 Date of Discharge: June 23, 2020 Attending Provider at Admission: Kushal Jane MD Attending Provider at Discharge: Irma Blackman MD Primary Care Provider: Raymundo Clayton MD Diagnoses at Discharge Discharge Diagnosis (1) Abdominal pain: Status: Acute Reason for Visit Reason for Visit: flank pain Hospital Course Discharge Summary: Nazario Wood is a 64 year old male With multiple medical comorbidities coronary disease, patent grafts with multivessel disease, type 2 diabetes, diastolic congestive heart failure, hypertension, came in for worsening left upper quadrant pain. CT scan of the abdomen and pelvis was done that showe Fatty infiltration of the liver, Gallstone within the gallbladder, No evidence for bowel obstruction or bowel wall thickening. He was seen by surgery service. ultrasound showed no evidence of cholecystitis, there is no evidence of gallbladder wall thickness or pericholecystic fluid or edema. There was no acute surgical intervention at the time. Patient had resporetd constipation and received mag citrate which improved his symptoms significantly. He is discharged witha dvice to f/up with surgery as he may still need elective cholecystectomy given hepatic steatosis and possible symptomatic GB stones. Patient feels well at time of discharge and is tolerating a regular diet Physical Exam Narrative: EXAM NARRATIVE: GEN: Awake, alert and oriented, no acute distress CVS: S1S2 N RS: CTA B/L Abd: Soft, nt/nd , bs+ [place] ATTORNEY: no focal neuro deficits Discharge Data Data Completed and Pending: Completed Studies During Hospitalization Category Date Time Status CT abdomen pelvis w con* [id number] Stat Cat Scan 06/21/20 19:[address] angio chest PE protcl [id number] Stat Cat Scan 06/22/20 04:06 Completed US abdomen comple te* [id number] Urgent Ultrasound 06/22/20 20:45 Completed Labs from last 24 hours 06/23/20 06/23/20 06/22/20 11:14 06:37 21:08 POC Glucose 176 123 138 Vitals: Last Vital Signs Temp 98.6 F 06/23/20 15:52 Pulse 51 L 06/23/20 15:52 Resp 18 06/23/20 15:52 BP 134/71 06/23/20 15:52 Pulse Ox 93 06/23/20 15:52 Discharge Plan Discharge Patient Disposition: Home Condition: Stable Prescriptions: New Protonix 40 mg tablet,delayed release (DR/EC) 40 mg PO DAILY 28 Days Qty: 30 RF: 0 Continued metoprolol tartrate 50 mg tablet 50 mg PO BID RF: 0 lisinopril 5 mg tablet 5 mg PO DAILY RF: 0 Novolog U-100 Insulin aspart 100 unit/mL solution See Rx Instructions .ROUTE .COMPLEX RF: 0 Lantus U-100 Insulin 100 unit/mL solution 55 unit SUBCUT BEDTIME RF: 0 ranolazine [Ranexa] 500 mg tablet extended release 12 hr 1,000 mg PO BID RF: 0 bumetanide 1 mg tablet 1 mg PO BID Qty: 90 RF: 3 aspirin 325 mg Tablet 325 mg PO DAILY RF: 0 isosorbide mononitrate 30 mg tablet extended release 24 hr See Rx Instructions .ROUTE .COMPLEX RF: 0 amlodipine 5 mg tablet 2.5 mg PO DAILY RF: 0 simvastatin 40 mg tablet 40 mg PO BEDTIME RF: 0 montelukast 10 mg tablet 10 mg PO DAILY RF: 0 Discharge Orders: Discharge Order (Routine); Ordered 06/23/20 Ordered By: Irma Blackman Referrals: Evan Jain MD [Physician] - 2 weeks (Return to surgery office in 2 to 3 weeks. Please call patient at home with a hospital follow up appointment in 2-3 weeks. Faxed information to the clinic.) Discharge Diet: Advance as tolerated Discharge Activity: Resume usual activity Patient Instructions: Abdominal Pain - Adult, Pantoprazole (By mouth), Hiatal Hernia (DC) Discharge Date/Time: 06/23/20 17:39 Discharge Attestations Time Spent in Discharge Care*: less than 30 min Quality Metrics Clinical Quality Measures During this hospital stay, did patient experience: None Coding Level of Care Code Acute [place] Room Worker for Chg Fwd Diagnoses Abdominal pain R10.9
[2020-06-23 17:01] VITALS: BP 134/71; PULSE 51; RESP 18; TEMP 37; O2SAT 93
== END 2020-06-23 17:39 | disposition home or self-care (01) ==
LOC: ER 19:29 → MEDSURG 22:41
PROVIDERS: Emergency Medicine; Admitting Provider Internal Medicine; PCP Family Medicine; Visit Provider Student in an Organized Health Care Education/Training Program
DX: R10.12 Left upper quadrant pain (principal); K59.00 Constipation, unspecified; K80.80 Other cholelithiasis without obstruction; E87.2 Acidosis; I25.10 Atherosclerotic heart disease of native coronary artery without angina pectoris; I11.0 Hypertensive heart disease with heart failure; I50.30 Unspecified diastolic (congestive) heart failure; E78.5 Hyperlipidemia, unspecified; Z95.1 Presence of aortocoronary bypass graft; Z87.891 Personal history of nicotine dependence; E11.9 Type 2 diabetes mellitus without complications; Z79.84 Long term (current) use of oral hypoglycemic drugs; K44.9 Diaphragmatic hernia without obstruction or gangrene; K40.90 Unilateral inguinal hernia, without obstruction or gangrene, not specified as recurrent; E66.01 Morbid (severe) obesity due to excess calories; Z68.41 Body mass index [BMI] 40.0-44.9, adult; K76.0 Fatty (change of) liver, not elsewhere classified
CPT/HCPCS: 12345; 36415; 36416; 71275; 74177; 76700; 80053; 81001; 82962; 83605; 83690; 84484; 85025; 85378; 93005; 96360; 96361; 96372; 96374; 96375; 96376; 99283; 99285; G0378; J1170; J1650; J1885; J2270; J2405; J7030; J7799; Q9967

== ENCOUNTER → 2020-07-27 09:54 | Outpatient (BNVA) | payer MEDICAID, SELFPAY | PROVIDERS: PCP Family Medicine; Visit Provider Surgery | DX: Z20.828 Contact with and (suspected) exposure to other viral communicable diseases (principal) | CPT/HCPCS: 87635 ==

== ENCOUNTER 2020-08-01 05:59 | Day surgery (SDC) | payer MEDICAID, SELFPAY ==
[2020-07-30 10:08] VITALS: BMI 38.2
[2020-08-01 06:08] VITALS: BP 131/85; PULSE 568; RESP 18; TEMP 36.3; O2SAT 98
--- NOTE | 2020-08-01 06:22 | W.PM.OPSUD ---
Surgery/Procedure H&P Update DATE OF PROCEDURE: August 01, 2020 DATE H&P PERFORMED: 07/12/20 H&P UPDATE INFORMATION: I have reviewed H&P completed within last 30 days, I have examined patient prior to procedure and No changes to prior documentation PREOP DIAGNOSIS: Abdominal Pain PRIMARY INDICATION FOR PROCEDURE: The same PLANNED PROCEDURE: Operation Date: 08/01/20 07:00 Proposed Procedures p EGD/colon [id number] Z12.11 R10.9(Not Applicable) - Evan Jain MD s Colonoscopy(Not Applicable) - Evan Jain MD
[2020-08-01] MEDS: sodium chloride 0.9% 1,000 ML 30 ML IV (06:32)
[2020-08-01 06:35] LABS: Glucose Point of Care 112 mg/dL (70-110)
--- NOTE | 2020-08-01 06:45 | ANES.PREANE2 ---
Pre-Anesthetic Assessment Pre-Anesthetic Assessment: Height/Weight: Height 1.73 m Weight 114.305 kg Temp Pulse Resp BP Pulse Ox 97.3 F L 568 H 18 131/85 98 08/01/20 06:08 08/01/20 06:08 08/01/20 06:08 08/01/20 06:08 08/01/20 06:08 Preop Diagnosis: Abdominal Pain Proposed Procedure: Operation Date: 08/01/20 07:00 Proposed Procedures p EGD/colon 05335 08695 Z12.11 R10.9(Not Applicable) - Evan Jain MD s Colonoscopy(Not Applicable) - Evan Jain MD Familial anesthetic complications: None Was Beta Lindsey taken within 24 hours: N/A Last intake: Intake Last Liquid Date 07/31/20 Last Liquid Time 19:00 Last Solid Date 07/30/20 Last Solid Time 20:00 Social: Social History: No alcohol and No tobacco Exam: Pre-Anes Outpt Exam: alert, oriented x 3, clear to auscultation bilaterally and regular rate & rhythm Airway: Cervical ROM: WNL MP: 2 Dentition: Other (missing) Additional comments: larege neck CV/HEM: CV/HEM: CAD (stents), HTN and [place] (X3) Comments: CABG in 2012 Patient can climb 2 flights of stairs without SOB GI: GI: GERD Metabolic: Metabolic: DM, Hyperlipidemia and Morbid obesity Anesthetic Plan: ASA status: 3 Anesthesia: MAC Risk of > 500 ml blood loss (7ml/kg in children): No Meds/Allergies Current Medications: Current Medications Generic Name Dose Route Start Last Admin Trade Name Freq PRN Reason Stop Dose Admin Sodium Chloride 1,000 mls @ 30 ml s/hr 08/01/20 06:15 08/01/20 06:32 Sodium Chloride 0.9% IV 30 mls/hr .Q24H GARCÍA Administration PFSH Anesthesia PFSH: Medical History (Updated 07/13/20 @ 00:02 by ) 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 CAD (coronary artery disease) Diabetes mellitus Diastolic heart failure HTN (hypertension) Hyperlipidemia Inguinal hernia Presence of IVC filter Surgical History S/P brain surgery S/P CABG (coronary artery bypass graft) S/P carpal tunnel release S/P hip replacement Family History Mother Diabetes Heart disease Father Diabetes Heart disease Social History Smoking and tobacco status: former smoker Alcohol intake: current Alcohol type: beer Household members: spouse Housing: House Marital status: Data Anesthesia Other Labs: Laboratory Results - last 48 hr 08/01/20 06:30 POC Glucose 112 Cardiac Studies: No Data to Display
[2020-08-01 07:27] VITALS: BP 133/81; PULSE 52; RESP 16; TEMP 36.6; O2SAT 98
--- NOTE | 2020-08-01 07:36 | ANE.PACU2 ---
Inpatient post-anesthesia follow up: Airway intact: Yes Vital signs: Temperature 98 F Pulse Rate 52 Respiratory Rate 16 Blood Pressure 133/81 Pulse Oximetry 98 Oxygen Delivery Me thod Room Air Oxygen Flow Rate Fraction of Inspir ed Oxygen Hydration adequate: Yes Nausea and vomiting: No Mental status: Baseline
[2020-08-01 07:41] VITALS: BP 129/66; PULSE 55; RESP 16; O2SAT 96
== END 2020-08-01 07:50 | disposition home or self-care (01) ==
PROVIDERS: PCP Family Medicine; Visit Provider Surgery
PROC: 0DJ08ZZ Inspection of Upper Intestinal Tract, Via Natural or Artificial Opening Endoscopic (ICD-10-PCS; CPT 43235; principal; 2020-08-01 07:00)
PROC: 0DJD8ZZ Inspection of Lower Intestinal Tract, Via Natural or Artificial Opening Endoscopic (ICD-10-PCS; CPT 45378; 2020-08-01 07:00)
DX: R10.9 Unspecified abdominal pain (principal); K21.0 Gastro-esophageal reflux disease with esophagitis; I25.10 Atherosclerotic heart disease of native coronary artery without angina pectoris; Z95.5 Presence of coronary angioplasty implant and graft; E11.9 Type 2 diabetes mellitus without complications; I11.0 Hypertensive heart disease with heart failure; I50.30 Unspecified diastolic (congestive) heart failure; I25.2 Old myocardial infarction; Z95.1 Presence of aortocoronary bypass graft; E78.5 Hyperlipidemia, unspecified; E66.01 Morbid (severe) obesity due to excess calories; Z68.38 Body mass index [BMI] 38.0-38.9, adult; Z82.49 Family history of ischemic heart disease and other diseases of the circulatory system
CPT/HCPCS: 12345; 36416; 43239; 45378; 82962; 88305; J2704; J7030

== ENCOUNTER 2021-01-24 14:15 | Outpatient (CLI) | payer MEDICAID, SELFPAY ==
--- NOTE | 2021-01-24 14:25 | XR_ITS ---
WS: [id number] Exam: XR chest 2V* [id number] Date/Time of Exam: 01/24/2021 2:25 PM Reason For Exam: rule out pneumonia Comparison 10/09/2019. The lungs are clear and fully expanded. Normal cardiomediastinal structures and bony elements. Signs of previous sternotomy and CABG surgery. XR/XR chest 2V* [id number] IMPRESSION: 1. No acute cardiopulmonary finding.
[2021-01-24 15:06] LABS: Basophils % 0.5 %; Eosinophils # 0.2 10^3/uL (0.0-0.8); Eosinophils % 2.7 %; Hematocrit 38.2 % (42.0-52.0); Hemoglobin 13.2 g/dL (11.7-16.6); Mean Corpuscular HGB Conc 34.6 g/dL (30.0-36.0); Mean Corpuscular Hemoglobin 35.5 pg (28.0-34.0); Mean Corpuscular Volume 102.7 fL (80-94); Mean Platelet Volume 10.1 fL (7.4-10.4); Monocytes # 0.7 10^3/uL (0.2-0.9); Monocytes % 11.4 %; Neutrophils # 2.96 10^3/uL (1.8-7.7); Neutrophils % 50.4 %; Nucleated Red Blood Cells % 0 %; Platelet Count 163 10^3/cmm (130-400); Red Blood Count 3.72 10^6/uL (4.1-5.3); Red Cell Distribution Width 13.9 % (12.1-15.1); White Blood Count 5.9 10^3/uL (4.0-10.0)
[2021-01-25 17:57] LABS: Immunoglobulin E 15 kU/L (<OR=114)
[2021-01-25 17:58] LABS: Alternaria Alternata (M6) Ige <0.10 kU/L; Alternaria Class 0; Bermuda Class 0; Bermuda Grass (G2) Ige <0.10 kU/L; Cat Dander (E1) Ige <0.10 kU/L; Cat Dander Class 0; Common Ragweed (Short) (W1) Ig <0.10 kU/L; D. Farinae Class 0; Dermatophagoides Class 0; Dermatophagoides Farinae (D2) <0.10 kU/L; Dermatophagoides Pteronyssinus <0.10 kU/L; Dog Dander (E5) Ige <0.10 kU/L; Dog Dander Class 0; Elm (T8) Ige <0.10 kU/L; Elm Class 0; English Plantain (W9) Ige <0.10 kU/L; English Plantain Class 0; House Dust (Greer) (H1) Ige <0.10 kU/L; House Dust (Hollister- Stier) <0.10 kU/L; House Dust Class 0; Immunoglobulin E 14 kU/L (<OR=114); Johnson Grass (G10) Ige <0.10 kU/L; Johnson Grass Cl 0; June Grass Class 0; June Grass(Kentucky Blue) (G8) <0.10 kU/L; Lamb'S Quarters (Goose Foot) <0.10 kU/L; Lamb'S Quarters Class 0; Maple (Box Elder) (T1) Ige <0.10 kU/L; Maple Class 0; Meadow Fescue (G4) Ige <0.10 kU/L; Meadow Fescue Class 0; Mucor Racemosus Class 0; Oak (T7) Ige <0.10 kU/L; Oak Class 0; Orchard Grass (Cocksfoot) (G3) <0.10 kU/L; Penicillium Class 0; Penicillium Notatum (M1) Ige <0.10 kU/L; Perennial Rye Grass (G5) Ige <0.10 kU/L; Perennial Rye Grass Class 0; Ragweeed Class 0; Rough Marsh Elder (W16) Ige <0.10 kU/L; Rough Marsh Elder Class 0; Sweet Vernal Class 0; Sweet Vernal Grass (G1) Ige <0.10 kU/L; Timothy Grass (G6) Ige <0.10 kU/L; Timothy Grass Class 0
[2021-01-28 18:24] LABS: Aspergillus Fumigatus, Igg Ab, 6.7 mg/L (<=102)
== END 2021-01-24 14:16 | disposition home or self-care (01) ==
LOC: RAD 14:22
PROVIDERS: PCP Family Medicine; Visit Provider Internal Medicine Pulmonary Disease
DX: J18.9 Pneumonia, unspecified organism (principal); J45.909 Unspecified asthma, uncomplicated
CPT/HCPCS: 36415; 71046; 82785; 85025; 86003

== ENCOUNTER → 2021-02-14 11:14 | Outpatient (BNVA) | payer MEDICAID, SELFPAY | PROVIDERS: PCP Family Medicine; Visit Provider Internal Medicine Pulmonary Disease | DX: Z01.812 Encounter for preprocedural laboratory examination (principal); Z20.822 Contact with and (suspected) exposure to COVID-19 | CPT/HCPCS: 87635 ==

== ENCOUNTER 2021-02-18 10:10 | Outpatient (CLI) | payer MEDICAID, SELFPAY ==
--- NOTE | 2021-02-18 10:31 | PFTS_ITS ---
Date of Study:02/18/21 Date of Dictation: MECHANICS: Forced vital capacity (FVC) is reduced. Forced expiratory volume in one second (FEV1) is normal. FEV1/FVC is normal. FLOW VOLUME LOOP: Normal. LUNG VOLUMES: Total lung capacity (TLC) is reduced. Residual volume (RV) is reduced. DIFFUSING CAPACITY FOR CARBON MONOXIDE: Mild reduced. INTERPRETATION: The prebronchodilator spirometry is consistent with mild restriction. No postbronchodilator spirometry was performed. The lung volumes are consistent with restrictive lung disease. Gas exchange (DLCO) is mildly reduced. MTDD
[2021-02-18 10:51] VITALS: BP 138/74; BP 165/77
== END 2021-02-18 10:11 | disposition home or self-care (01) ==
LOC: RT 10:12
PROVIDERS: PCP Family Medicine; Visit Provider Internal Medicine Pulmonary Disease
DX: J45.909 Unspecified asthma, uncomplicated (principal)
CPT/HCPCS: 94010; 94618; 94726; 94729

== ENCOUNTER 2021-03-12 09:03 | Outpatient (CLI) | payer MEDICAID, SELFPAY ==
--- NOTE | 2021-03-12 09:15 | CT_ITS ---
WS: [id number] CT CHEST HIGH-RESOLUTION TECHNIQUE: High-resolution CT chest with inspiratory, expiratory, and prone imaging CLINICAL INFORMATION: R06.00 - Dyspnea, unspecified COMPARISON: None. DLP: 300.[address] scans at [facility] use at least one of these dose optimization techniques: automat ed exposure control; mA and/or kV adjustment per patient size (includes targeted exams where dose is matched to clinical indication); or iterative reconstruction. FINDINGS: High resolution images demonstrate no evidence of interstitial lung disease. Slight bibasilar atelect asis. No significant subpleural honeycombing. Moderate chronic emphysematous changes. No acute pulmon sallie infiltrates. No focal pneumonia or pleural fluid. No air trapping on the expiration images. Aortic calcification. Coronary calcification. Cholelithiasis. Small esophageal hiatal hernia. CT/CT chest wo con [id number] IMPRESSION: 1. No evidence of interstitial lung disease. No subpleural honeycombing. 2. Slight atelectasis in the lung bases. 3. Moderate chronic emphysematous changes. No acute pulmonary infiltrates. 4. Vascular calcification including coronary. 5. Cholelithiasis.
== END 2021-03-12 09:04 | disposition home or self-care (01) ==
LOC: RAD 09:04
PROVIDERS: PCP Family Medicine; Visit Provider Internal Medicine Pulmonary Disease
DX: R06.00 Dyspnea, unspecified (principal); K80.20 Calculus of gallbladder without cholecystitis without obstruction; J98.11 Atelectasis; I25.10 Atherosclerotic heart disease of native coronary artery without angina pectoris
CPT/HCPCS: 71250

== ENCOUNTER → 2022-11-05 10:48 | Outpatient (BNVA) | payer MEDICARE, MEDICAID, SELFPAY | PROVIDERS: PCP Family Medicine; Visit Provider Internal Medicine Cardiovascular Disease | DX: I25.10 Atherosclerotic heart disease of native coronary artery without angina pectoris (principal); Z95.1 Presence of aortocoronary bypass graft; G47.19 Other hypersomnia; E66.01 Morbid (severe) obesity due to excess calories; Z68.39 Body mass index [BMI] 39.0-39.9, adult; E78.5 Hyperlipidemia, unspecified; I11.0 Hypertensive heart disease with heart failure; I50.32 Chronic diastolic (congestive) heart failure; Z86.16 Personal history of COVID-19; Z87.891 Personal history of nicotine dependence | CPT/HCPCS: 99213 ==

== ENCOUNTER → 2023-05-06 14:58 | Outpatient (BNVA) | payer MEDICARE, SELFPAY | PROVIDERS: PCP Family Medicine; Visit Provider Internal Medicine | DX: I25.10 Atherosclerotic heart disease of native coronary artery without angina pectoris (principal); I11.0 Hypertensive heart disease with heart failure; I50.32 Chronic diastolic (congestive) heart failure; R06.02 Shortness of breath; R00.1 Bradycardia, unspecified; Z87.891 Personal history of nicotine dependence; Z95.1 Presence of aortocoronary bypass graft | CPT/HCPCS: 36415; 80048; 83880; 99214 ==

== ENCOUNTER 2023-06-05 14:04 | Outpatient (CLI) | payer MEDICARE, SELFPAY ==
--- NOTE | 2023-06-05 14:30 | USCV_ITS ---
Nazario Wood Age: 67 Gender: M : 1955 Exam Date: 06/05/2023 14:41 Ordering Phys: Morteza Smith M.D ([email or web address]) Technologist: CATHERINE [place]am [place] [facility] [place]ication: SHORTNESS OF BREATH BP: 140 / 68 HR: 56 Rhythm: Sinus Technical Quality: Suboptimal MEASUREMENTS (Male / Female) Normal Values 2D ECHO LVOT Diameter 2.0 cm LV Ejection Fraction MOD 2C 60.3 % LV Ejection Fraction 2C AL 59.4 % LA Diameter 3.9 cm LA Width 2.6 cm LA Height 4.0 cm RA Width 3.1 cm RA Height 3.7 cm Aorta at Sinotubular Diameter 2.5 cm M-MODE Aortic Annulus Diameter 2.9 cm LA Ao Ratio MM 1.2 MV E Point Septal Separation 0.7 cm DOPPLER AV Peak Velocity 182.0 cm/s LVOT Peak Velocity 90.0 cm/s AV Area Cont Eq vti 1.5 cm squared AV Area Cont Eq pk 1.5 cm squared MV Peak Velocity 103.0 cm/s MV Area PHT 2.3 cm squared Mitral E to A Ratio 0.6 MV E' Velocity 35.5 cm/s Mitral E to MV E' Ratio 7.6 Mitral E to LV E' Lateral Ratio 5.8 Mitral E to LV E' Septal Ratio 11.3 TR Peak Velocity 136.2 cm/s TR Peak Gradient 7.4 mmHg TR Mean Velocity 111.3 cm/s TR Mean Gradient 5.2 mmHg TR Velocity Time Integral 42.2 cm TV Peak E Velocity 54.0 cm/s Right Atrial Pressure 8.0 mmHg Pulmonary Artery Systolic Pressu 15.4 mmHg PV Peak Velocity 158.0 cm/s RV Acceleration Time 0.1 s RV Ejection Time 0.3 s RV AcT/ET 0.4 FINDINGS Left Ventricle Left ventricle is normal in size. LV systolic function is normal with EF of 60-65 %. No regional wall motion abnormalities are seen. Grade 1 diastolic dysfunction Right Ventricle Normal in size and function Right Atrium Normal in size Left Atrium Normal in size Mitral Valve Structurally normal mitral valve. Trace mitral regurgitation. Aortic Valve Structurally normal aortic valve. No significant stenosis or regurgitation. Tricuspid Valve Trace tricuspid regurgitation. Insufficient TR jet to evaluate RVSP. Pulmonic Valve Not well-visualized Pericardium Normal Aorta Normal in size IVC Appears to be normal CONCLUSIONS Technically limited quality echocardiogram because of poor ultrasonic windows. LV systolic function is normal with EF of 60 to 65%. Grade 1 diastolic dysfunction Trace mitral regurgitation Trace tricuspid regurgitation Compared to prior echocardiogram from 2019, no significant changes are seen. Morteza Smith MD (Electronically Signed) Final Date: 16 June 2023 21:41 S
== END 2023-06-05 14:05 | disposition home or self-care (01) ==
PROVIDERS: PCP Family Medicine; Visit Provider Internal Medicine
DX: R06.02 Shortness of breath (principal); I51.89 Other ill-defined heart diseases
CPT/HCPCS: 93306

== ENCOUNTER → 2023-11-11 16:24 | Outpatient (BNVA) | payer MEDICARE, SELFPAY | PROVIDERS: PCP Family Medicine; Visit Provider Internal Medicine | DX: I10 Essential (primary) hypertension (principal); I50.32 Chronic diastolic (congestive) heart failure; R00.1 Bradycardia, unspecified; I25.10 Atherosclerotic heart disease of native coronary artery without angina pectoris; R07.9 Chest pain, unspecified; R06.02 Shortness of breath | CPT/HCPCS: 36415; 80048; 83880; 99214 ==

== ENCOUNTER 2023-11-24 12:36 | Outpatient (CLI) | payer MEDICARE, SELFPAY ==
[2023-11-24 13:22] LABS: Alanine Aminotransferase 19 U/L (0-41); Albumin Level 3.7 g/dL (3.5-5.2); Alkaline Phosphatase 68 U/L (40-130); Anion Gap 14.8 (5-19); Aspartate Amino Transferase 24 U/L (0-40); Blood Urea Nitrogen 12 mg/dL (8-23); Carbon Dioxide 20 mmol/L (22-29); Chloride 107 mmol/L (98-107); Globulin 3.5 g/dL (1.3-4.6); Glucose 168 mg/dL (65-115); NT Pro B Type Natriuretic Pept 240 pg/mL (0-125); Osmolality Calculated 290 mOsm/kg (285-295); Potassium 3.8 mmol/L (3.5-5.1); Sodium 138 mmol/L (136-145); Total Bilirubin 0.2 mg/dL (0.15-1.2); Total Protein 7.2 g/dL (6.6-8.7)
== END 2023-11-24 12:37 | disposition home or self-care (01) ==
LOC: LAB 12:37
PROVIDERS: PCP Family Medicine; Visit Provider Internal Medicine
DX: I11.0 Hypertensive heart disease with heart failure (principal); I50.32 Chronic diastolic (congestive) heart failure; E78.5 Hyperlipidemia, unspecified; I25.10 Atherosclerotic heart disease of native coronary artery without angina pectoris
CPT/HCPCS: 80053; 83880

== ENCOUNTER → 2023-11-30 09:16 | Outpatient (BNVA) | payer MEDICARE, SELFPAY | PROVIDERS: PCP Family Medicine; Visit Provider Nurse Practitioner Family | DX: I11.0 Hypertensive heart disease with heart failure (principal); I50.32 Chronic diastolic (congestive) heart failure; Z87.891 Personal history of nicotine dependence; E78.5 Hyperlipidemia, unspecified | CPT/HCPCS: 36415; 80048; 83880; 99214 ==

== ENCOUNTER 2023-12-11 07:05 | Outpatient (CLI) | payer MEDICARE, SELFPAY ==
--- NOTE | 2023-12-11 | ECG_ITS ---
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 Interpretive Statements NAME OF STUDY: LEXISCAN SESTAMIBI STRESS TEST INDICATION: [Chest Pain; Shortness of breath] Procedure: At the baseline, the blood pressure was 144/70 mmHg with a heart rate of 55 bpm. The electrocardiogram showed sinus bradycardia, normal axis with normal ST and T's. The Lexiscan was infused over a period of 20 seconds. A total of 0.4 mg of Lexiscan was infused. The stress phase was continued for a total of 5 minutes. Heart rate was at the end of stress phase was 65 bpm and a blood pressure of 135/71 mmHg. The EKG at the peak infusion revealed normal sinus rhythm with no significant ST-T wave changes. Sestamibi was injected 20 seconds after the Lexiscan infusion. Blood pressure at the end of recovery phase was 137/72 mmHg with a heart rate of 61 bpm. Conclusion: 1. Normal EKG response to Lexiscan infusion 2. No Lexiscan induced chest pain or cardiac arrhythmia. 3. Normal blood pressure and heart rate response. 4. Sestamibi/sestamibi perfusion scan pending; see separate report. Electronically Signed On 12-25-2023 11:50:44 [employer] HR[employer] DEVELOPER by Morteza Smith M.D. [email or web address]
[2023-12-11 07:18] VITALS: BMI 40.2
--- NOTE | 2023-12-11 07:25 | NMCV_ITS ---
NM daryl perf SPECT r/s* [id number] Nazario Wood Age: 68 Gender: M : 1955 Exam Date: 12/11/2023 07:51 Ordering Phys: Morteza Smith M.D ([email or web address]) Technologist: SHAY Whitfield Exam Location: [facility] Indications: CHEST PAIN STRESS TEST [facility] IMAGE PROTOCOL Rest/Stress 1 Lexiscan Day Radiopharmaceutical Dose (mCi) Administration Site Administered by Rest: Tc-99m 10.7 IV SHAY Ramos Sestamibi Stress:Tc-99m 32.9 IV SHAY Ramos Sestamibi Rest: 11-Dec-2023 60 Discovery 630 Stress: 11-Dec-2023 30 Discovery 630 0.4mg Lexiscan. Images obtained in supine and prone position. SPECT RESULTS Technical Quality: Excellent Raw Data Analysis: Normal Image Corrections: No attenuation or motion correction applied Summed Stress Score: 15 Summed Rest Score: 10 Summed Difference Score: 5 PERFUSION FINDINGS There is large in size partially reversible perfusion defect seen in apical anterior, anterior and anterolateral wall. This is consistent with large area of prior infarct with significant heather-infarct ischemia in LAD territory. There is large sized mostly reversible perfusion defect seen in the inferolateral and lateral wall. This is consistent with large area of prior infarct with significant heather-infarct ischemia. FUNCTIONAL RESULTS (calculated via Gated SPECT) Stress Image LV EF (%): 47 Stress EDV (mL):161 TID: 1.02 Stress ESV (mL):86 FUNCTIONAL FINDINGS: LV systolic function is mildly reduced with EF of 47%. IMPRESSIONS 1. Abnormal myocardial perfusion imaging with large area of prior infarct with significant heather-infarct ischemia in LAD territory. 2. Large area of prior infarct with significant heather-infarct ischemia in left circumflex artery territory. 3. LV systolic function is mildly reduced with EF of 47%. Morteza Smith MD (Electronically Signed) Final Date: 11 December 2023 11:17 S
[2023-12-11] MEDS: regadenoson 0.4 Mg/5 ml Syringe IVP (08:26)
[2023-12-11 08:44] VITALS: BP 137/72; PULSE 61
== END 2023-12-11 07:06 | disposition home or self-care (01) ==
PROVIDERS: PCP Family Medicine; Visit Provider Internal Medicine
DX: R07.9 Chest pain, unspecified (principal); R06.02 Shortness of breath; I25.2 Old myocardial infarction; I50.20 Unspecified systolic (congestive) heart failure
CPT/HCPCS: 36415; 78452; 93017; 96374; A9500; J2785